=== PATIENT | male | born 1995 | race Hispanic/Latino ===

== ENCOUNTER 2017-06-08 00:12 | Emergency (ER) | payer OTHER ==
[~2017-06-08] VITALS: Ht 170.2 cm; Wt 59.0 kg
[2017-06-08 00:12] VITALS: BP 143/83
== END 2017-06-08 00:30 | DRG 951 ==
LOC: ED 00:12
DX: Z02.89 Encounter for other administrative examinations (principal); S60.410A Abrasion of right index finger, initial encounter; X58.XXXA Exposure to other specified factors, initial encounter